=== PATIENT | male | born 1985 | race Caucasian/White ===

== ENCOUNTER 2018-03-02 15:01 | Inpatient (IN) | payer BC ==
[~2018-03-02] VITALS: Ht 172.7 cm; Wt 74.2 kg
[2018-03-02 15:04] VITALS: BP 123/84
[2018-03-02 15:27] LABS: ABSOLUTE BASOPHILS 0.1 thou/uL (0.0-0.2); ABSOLUTE EOSINOPHILS 0.1 thou/uL (0.0-0.7); ABSOLUTE LYMPHOCYTES 1.6 thou/uL (0.8-5.3); ABSOLUTE NEUTROPHILS 6.1 thou/uL (1.6-8.1); EOSINOPHILS 0.7 %; HEMATOCRIT 48.1 % (42.0-52.0); HEMOGLOBIN 16.4 gm/dL (14.0-18.0); LYMPHOCYTES 17.7 %; MCH 30.8 pg (26.0-34.0); MCHC 34.1 g/dL (28.0-37.0); MCV 90.3 fL (80.0-100.0); MONOCYTES 11.5 %; MPV 10.6 fl. (7.2-11.1); NUCLEATED RBCS 0 /100WBC; PLATELET COUNT* 160 thou/uL (150-400); POLYS 69.1 %; RBC 5.32 mil/uL (4.50-6.00); RDW-CV 12.9 % (10.5-14.5); WBC 8.8 thou/uL (4.0-11.0)
[2018-03-02 15:32] LABS: CALCIUM 8.6 mg/dL (8.5-10.1); CREATININE 1.1 mg/dL (0.6-1.3); POTASSIUM 3.6 mmol/L (3.5-5.1)
[2018-03-02 15:42] LABS: ALBUMIN 3.5 g/dL (3.4-5.0); TOTAL BILIRUBIN 0.4 mg/dL (<0.1-1.0); TOTAL PROTEIN 7.8 g/dL (6.4-8.2)
[2018-03-02 15:56] LABS: TROPONIN-I LEVEL 1.54 ng/mL (<0.06)
[2018-03-02 16:32] LABS: CK-MB MASS 6.8 ng/mL (<0.5-3.6)
[2018-03-02 17:46] VITALS: BP 107/76
[2018-03-02 18:30] VITALS: BP 112/77
[2018-03-02 20:00] VITALS: BP 105/74
[2018-03-03] VITALS (13 sets, daily range): BP systolic 95–121; BP diastolic 57–85
--- NOTE | 2018-03-03 14:02 | 2DMMODE ---
[place] [address] 2 D/M-MODE ECHOCARDIOGRAM Name: ROSHAN DUQUE Room: [address] IN [facility]#: [id number] Admission: 03/02/18 Attend Phys: Vineet Dye Discharge: Date of : 81 Date of Service: 03/03/18 1402 Report #: [id number] THIS REPORT FOR: //name// APPROVED REPORT Study performed: 03/03/2018 11:42:38 EXAM: Comprehensive 2D, Doppler, and color-flow Echocardiogram Patient Location: In-Patient Room #: 201 Status: routine BSA: 1.89 HR: 82 bpm BP: 95/57 mmHg Rhythm: NSR Other Information Study Quality: Good Indications Chest Pain 2D Dimensions LVEF(%): 54.85 (>50%) IVSd: 8.57 (7-11mm) LVOT Diam: 19.58 (18-24mm) LVDd: 43.30 mm PWd: 7.30 (7-11mm) Ascending Ao: 24.68 (22-36mm) LVDs: 31.07 (25-40mm) Aortic Root: 28.63 mm Álvarez's LVEF: 54.85 % Volumes Left Atrial Volume (Systole) LA ESV Index: 17.10 mL/m2 Aortic Valve AoV Peak Calvin.: 1.12 m/s AO Peak Gr.: 5.06 mmHg LVOT Max P.06 mmHg AO Mean Gr.: 2.98 mmHg LVOT Mean P.94 mmHg LVOT Max V: 1.01 m/s AO V2 VTI: 21.94 cm LVOT Mean V: 0.64 m/s HARSHA (VTI): 2.73 cm2 LVOT V1 VTI: 19.89 cm Mitral Valve E/A Ratio: 1.67 [place] [address] 2 D/M-MODE ECHOCARDIOGRAM Name: ROSHAN DUQUE Room: [address] IN .R.#: [id number] Admission: 03/02/18 Attend Phys: Vineet Dye Discharge: Date of : 81 Date of Service: 03/03/18 1402 Report #: [id number] MV Decel. Time: 193.53 ms MV E Max Calvin.: 0.95 m/s MV PHT: 56.12 ms MVA (PHT): 3.92 cm2 TDI E/Lateral E': 6.79 E/Medial E': 7.92 Medial E' Calvin.: 0.12 m/s Lateral E' Calvin.: 0.14 m/s Pulmonary Valve PV Peak Calvin.: 0.94 m/s PV Peak Gr.: 3.54 mmHg Tricuspid Valve RAP Estimate: 5.00 mmHg TR Peak Gr.: 17.27 mmHg RVSP: 22.27 mmHg PA Pressure: 22.27 mmHg Left Ventricle The left ventricle is normal size. There is normal LV segmental wall motion. There is normal left ventricular wall thickness. Left ventricular systolic function is normal. The left ventricular ejection fraction is within the normal range. LVEF is 50-55%. The left ventricular diastolic function is normal. Right Ventricle The right ventricle is normal size. The right ventricular systolic function is normal. Atria The left atrium size is normal. The right atrium size is normal. Aortic Valve The aortic valve is normal in structure. No aortic regurgitation is present. There is no aortic valvular stenosis. Mitral Valve The mitral valve is normal in structure. There is no mitral valve regurgitation noted. No evidence of mitral valve stenosis. Tricuspid Valve The tricuspid valve is normal in structure. Trace tricuspid regurgitation. No pulmonary hypertension[place] [address] 2 D/M-MODE ECHOCARDIOGRAM Name: ROSHAN DUQUE Room: [address] IN [facility].#: [id number] Admission: 03/02/18 Attend Phys: Vineet Dye Discharge: Date of : 81 Date of Service: 03/03/18 1402 Report #: [id number] The pulmonary valve is normal in structure. There is no pulmonic valvular regurgitation. Great Vessels The aortic root is normal in size. IVC is normal in size and collapses with >50% inspiration Pericardium There is no pericardial effusion. <Conclusion> The left ventricle is normal size. There is normal left ventricular wall thickness. Left ventricular systolic function is normal. The left ventricular ejection fraction is within the normal range. LVEF is 50-55%. The left ventricular diastolic function is normal. Trace tricuspid regurgitation. No pulmonary hypertension. IVC is normal in size and collapses with >50% inspiration <ELECTRONICALLY SIGNED> By: Gulshan Guzman MD, FACC 03/03/18 140 140 01 Gulshan Guzman MD, FACC /INF
--- NOTE | 2018-03-03 16:29 | CARD ---
[facility] [address] [place] [address] CARDIAC CATH REPORT Name: ROSHAN DUQUE Room: [address] IN [facility].#: [id number] Admission: 03/02/18 Attend Phys: Stuart Hess Discharge: Date of : 81 Report #: [id number] THIS REPORT FOR: //name// APPROVED REPORT Study performed: 03/03/2018 13:21:54 Patient Details Patient Status: In-Patient Room #: 201 The patient is a 32 year-old male Event Personnel Gulshan Guzman Marine Firefighter, Cami Troy RN Window Covering Sales Consultant, Kristen King RTR Monitor, Mai Veronica Scrfelisha Procedures Performed Art Access - R radial artery , Coronary Angiography , Hemostasis with Hemoband Admission/Lab Medications/Medications given during procedure Heparin IV 3700 units, Verapamil IA 2.5 mg, Nitroglycerin IA 200 mcg, Nitroglycerin IC 200 mcg, Verapamil IC 2.5 mcg Procedure Narrative The patient was brought electively to the Cardiac Catheterization Laboratory and was prepped and draped in a sterile manner. The right wrist was infiltrated with 2% Lidocaine subcutaneous anesthesia. A Slender Glidesheath sheath was inserted into the right radial artery. Coronary angiography was performed using coronary diagnostic catheters. The right coronary system was accessed and visualized with a Diagnostic 5Fr 4.0 Orrtanna catheter. The left coronary system was accessed and visualized with a Diagnostic 5Fr 4.0 Orrtanna catheter. Left ventricular/Aortic Valve gradient assessed via catheter pullback. Closure device was deployed with a Fr Vasc-Band Reg 24cm. Hemostasis was obtained with manual pressure following sheath removal without any complications. The patient tolerated the procedure well and there were no complications associated with the procedure. There was no hematoma. Intraoperative Conscious Sedation Sedation start time: 15:00 Case end Time: 15:15 Fentanyl 25 mcg Versed 1 mg Fluoro Time: 1.4 [place] [address] CARDIAC CATH REPORT Name: ROSHAN DUQUE Room: [address] IN [facility]#: [id number] Admission: 03/02/18 Attend Phys: Stuart Hess Discharge: Date of : 81 Report #: [id number] Dose: DAP [id number] cGycm2 225.03 mGy Contrast Type and Amount: Visipaque 100 ml Coronary Angiography The patient's coronary anatomy is right dominant. Diagnostic Cath Left Main Normal LAD Normal Diagonal 1 Normal Diagonal 2 Normal Circumflex Normal OM1 Normal Right Coronary Normal R PDA Normal RPLV Normal Left Ventriculography Left Ventriculography was not performed. Hemodynamics The aortic pressure is 88/65 mmHg with a mean of 77 mmHg. The left ventricular pressure is 94/2 mmHg with a mean of mmHg. The left ventricular end diastolic pressure is 12 mmHg. There was no gradient across the aortic valve upon pullback. Conclusion 1. Normal Coronary Arteries. 2. Normal LVEDP and left heart pressures. Recommendations 1. Continue current medical management. <ELECTRONICALLY SIGNED> By: Gulshan Guzman MD, FACC 03/03/18 1628 27 1628Micnorbert Guzman MD, FAC /INF
--- NOTE | 2018-03-03 17:54 | EKG ---
[place] [address] ELECTROCARDIOGRAM REPORT Name: ROSHAN DUQUE Room: [address] ADM IN .R.#: [id number] Admission: 03/02/18 Attend Phys: Stuart Hess Discharge: Date of : 81 Report #: [id number] THIS REPORT FOR: //name// [facility] ED Test Date: 2018-03-02 Test Time: 15:05:06 Pat Name: ROSHAN DUQUE Department: Room: [facility] Gender: Hydrologist: Ellie MALONE : 1985 Requested By: Kevin Sequeira Order Number: [id number] MD: Gulshan Guzman Measurements Intervals [place] Rate: 74 P: 40 SC: 131 QRS: 85 QRSD: 102 T: 3 QT: 332 QTc: 369 Interpretive Statements Sinus rhythm Borderline T abnormalities, inferior leads No previous ECG available for comparison Electronically Signed On 03-03-2018 17:54:37 CDT by Gulshan Guzman [email or web address] <ELECTRONICALLY SIGNED> By: Gulshan Guzman MD, [facility] 03/03/18 1754 1505 1505 Gulshan Guzman MD, FACC /EPI
--- NOTE | 2018-03-03 17:57 | EKG ---
[place] [address] ELECTROCARDIOGRAM REPORT Name: ROSHAN DUQUE Room: [address] ADM IN M.R.#: [id number] Admission: 03/02/18 Attend Phys: Stuart Hess Discharge: Date of : 81 Report #: [id number] THIS REPORT FOR: //name// [facility] Test Date: 2018-03-03 Test Time: 04:18:06 Pat Name: ROSHAN DUQUE Department: Room: [address] Gender: M Computer Hardware Developer: KATY : 1985 Requested By: Vineet Dye Order Number: [id number] Redd MD: Gulshan Guzman Measurements Intervals [place] Rate: 72 P: 54 DE: 170 QRS: 87 QRSD: 97 T: 54 QT: 370 QTc: 405 Interpretive Statements Sinus rhythm ST elev, probable normal early repol pattern No previous ECG available for comparison Electronically Signed On 03-03-2018 17:57:38 CDT by Gulshan Guzman [email or web address] <ELECTRONICALLY SIGNED> By: Gulshan Guzman MD, [facility] 03/03/18 1757 0418 0418 Gulshan Guzman MD, FACC /EPI
--- NOTE | 2018-03-03 17:57 | EKG ---
[place] [address] ELECTROCARDIOGRAM REPORT Name: ROSHAN DUQUE Room: [address] ADM IN M.R.#: [id number] Admission: 03/02/18 Attend Phys: Stuart Hess Discharge: Date of : 81 Report #: [id number] THIS REPORT FOR: //name// [facility] Test Date: 2018-03-02 Test Time: 21:03:04 Pat Name: ROSHAN DUQUE Department: Room: [address] Gender: M Clinical Laboratory Scientist: KATY : 1985 Requested By: Vineet Dye Order Number: [id number] Redd MD: Gulshan Guzman Measurements Intervals [place] Rate: 87 P: 49 SC: 160 QRS: 84 QRSD: 97 T: 35 QT: 335 QTc: 403 Interpretive Statements Sinus rhythm No previous ECG available for comparison Electronically Signed On 03-03-2018 17:56:59 CDT by Gulshan Guzman [email or web address] <ELECTRONICALLY SIGNED> By: Gulshan Guzman MD, [facility] 03/03/18 1756 2103 2103 Gulsh[facility] Guzman MD, [facility] /EPI
[2018-03-03] MEDS ORDERED: COLCHICINE0.6 MG PO (20:38)
[2018-03-03] MEDS ORDERED: IBUPROFEN 800800 M1 PO (20:39)
== END 2018-03-03 21:20 | disposition home or self-care (01) | DRG 281 ==
LOC: M.ERS 15:01 → M.2W 16:52 → M.TBA-ER 16:52 → M.2W 18:21
PROVIDERS: Emergency Medicine; ADMIT Internal Medicine
DX: I21.4 Non-ST elevation (NSTEMI) myocardial infarction (principal); I31.9 Disease of pericardium, unspecified; E78.5 Hyperlipidemia, unspecified; F17.210 Nicotine dependence, cigarettes, uncomplicated; Z71.6 Tobacco abuse counseling; Z82.49 Family history of ischemic heart disease and other diseases of the circulatory system

== ENCOUNTER 2018-09-06 18:22 | Emergency (ER) | payer BC ==
[~2018-09-06] VITALS: Ht 172.7 cm; Wt 77.1 kg
[~2018-09-06 18:22] MED LIST: COLCHICINE0.6 MG PO; IBUPROFEN 800800 M1 PO
[2018-09-06 19:38] LABS: HEMATOCRIT 44.1 % (42.0-52.0); HEMOGLOBIN 15.4 gm/dL (14.0-18.0); MCH 30.6 pg (26.0-34.0); MCHC 34.9 g/dL (28.0-37.0); MCV 87.7 fL (80.0-100.0); MPV 10.3 fl. (7.2-11.1); NUCLEATED RBCS 0 /100WBC; PLATELET COUNT* 153 thou/uL (150-400); RBC 5.03 mil/uL (4.50-6.00); RDW-CV 12.9 % (10.5-14.5); WBC 8.3 thou/uL (4.0-11.0)
[2018-09-06 19:49] LABS: URINE BILIRUBIN NEGATIVE (Negative); URINE BLOOD NEGATIVE (Negative); URINE CLARITY CLEAR; URINE COLOR YELLOW; URINE GLUCOSE-RANDOM NEGATIVE (Negative); URINE KETONES NEGATIVE (Negative); URINE LEUKOCYTES-REFLEX NEGATIVE (Negative); URINE NITRITE-REFLEX NEGATIVE (Negative); URINE PROTEIN NEGATIVE (Negative); URINE SPECIFIC GRAVITY 1.015 (1.005-1.030); URINE UROBILINOGEN 0.2 E.U./dl (0.2-1.0)
[2018-09-06 20:08] LABS: ALBUMIN 3.5 g/dL (3.4-5.0); CALCIUM 9.3 mg/dL (8.5-10.1); CREATININE 1.3 mg/dL (0.6-1.3); POTASSIUM 4.3 mmol/L (3.5-5.1); TOTAL BILIRUBIN 0.4 mg/dL (<0.1-1.0); TOTAL PROTEIN 7.2 g/dL (6.4-8.2)
[2018-09-06 20:12] LABS: INFLUENZA A ANTIGEN None Detected (None Detect); INFLUENZA B ANTIGEN None Detected (None Detect)
[2018-09-06] MEDS ORDERED: ZOFRAN ODT4 MG PO (20:19)
[2018-09-06] MEDS ORDERED: ACETAMINOPHEN-1 EAC1 PO (20:19)
[2018-09-06] MEDS ORDERED: KEFLEX500 M1 PO (20:19)
[2018-09-06 20:37] VITALS: BP 118/82
[2018-09-06 20:38] LABS: ABSOLUTE LYMPHOCYTES 3.9 thou/uL (0.8-5.3); ABSOLUTE MONOCYTES 0.2 thou/uL (0.0-1.2); ABSOLUTE NEUTROPHILS 4.2 thou/uL (1.6-8.1); PLATELET ESTIMATE ADEQUATE
== END 2018-09-06 20:39 | disposition home or self-care (01) ==
LOC: M.ERS 18:22
PROVIDERS: Physician Assistant
DX: R50.9 Fever, unspecified (principal); R11.10 Vomiting, unspecified; F17.210 Nicotine dependence, cigarettes, uncomplicated